=== PATIENT | female | born 1985 | race African-American/Black ===

== ENCOUNTER 2023-07-19 09:21 | Emergency (ER) | payer MEDICAID, SELFPAY ==
[2023-07-19 09:23] VITALS: BP 122/85; PULSE 72; RESP 16; TEMP 36.2; O2SAT 99; BMI 20.7
--- NOTE | 2023-07-19 09:34 | RAD_ITS ---
STUDY: X-RAY - PELVIS REASON FOR EXAM: Female, 37 years old. Injury/Pain TECHNIQUE: One view of the pelvis was obtained. COMPARISON: None. FINDINGS: There is a non-specific bowel gas pattern. There are multiple calcified phleboliths. Normal bilateral iliac wings, sacroiliac joints and visualized sacrum. Normal visualized bilateral superior and inferior pubic rami. There is narrowing with sclerosis of the pubic symphysis. Normal ischial tuberosities. Normal visualized right femoral head. Normal right acetabulum. Normal right hip joint. Normal visualized left femoral head. Normal left acetabulum. Normal left hip joint. RAD/Pelvis 1 or 2 Views IMPRESSION: No acute abnormality is seen. Electronically Signed: Larry Brown MD at 10:10 EST ,
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
[2023-07-19] MEDS: Ibuprofen 600 MG Tablet PO (09:43)
[2023-07-19] MEDS: HYDROcodone Bitartrate/Apap 5/325 Tablet PO (09:44)
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
[2023-07-19 09:54] VITALS: O2SAT 98
== END 2023-07-19 12:46 | disposition home or self-care (01) ==
PROVIDERS: Emergency Provider Emergency Medicine; Visit Provider Emergency Medicine
DX: S32.019A Unspecified fracture of first lumbar vertebra, initial encounter for closed fracture (principal); K40.90 Unilateral inguinal hernia, without obstruction or gangrene, not specified as recurrent; S39.93XA Unspecified injury of pelvis, initial encounter; S20.229A Contusion of unspecified back wall of thorax, initial encounter; V49.40XA Driver injured in collision with unspecified motor vehicles in traffic accident, initial encounter
CPT/HCPCS: 72100; 72170; 99282

== ENCOUNTER 2024-06-17 10:09 | Emergency (ER) | payer MEDICAID, SELFPAY ==
[2024-06-17 10:10] VITALS: BP 111/87; PULSE 78; RESP 18; TEMP 36.1; O2SAT 100; BMI 18.6
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
--- NOTE | 2024-06-17 10:45 | RAD_ITS ---
INDICATION: arm pain EXAMINATION/TECHNIQUE: X-RAY - RIGHT XR Humerus Min 2 Views 2 VIEWS COMPARISON: No relevant prior comparison study available FINDINGS: SOFT TISSUES: No soft tissue swelling or gas. No radiopaque foreign body. BONES/JOINTS: No acute fracture or subluxation.. Normal alignment. Preservation of the joint space.. No sclerotic or destructive changes observed. RAD/Humerus min 2 Views IMPRESSION: No acute osseous injury. Electronically Signed: Lindsay Montez MD at 12:09 EDT ,
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
[2024-06-17] MEDS: Acetaminophen 325 MG Tablet 650 MG PO (11:37)
[2024-06-17 13:46] VITALS: BP 111/87; PULSE 78; RESP 18; TEMP 36.1; O2SAT 100
== END 2024-06-17 13:48 | disposition home or self-care (01) ==
PROVIDERS: Emergency Provider Emergency Medicine; Visit Provider Emergency Medicine
DX: S00.83XA Contusion of other part of head, initial encounter (principal); S60.212A Contusion of left wrist, initial encounter; V89.2XXA Person injured in unspecified motor-vehicle accident, traffic, initial encounter
CPT/HCPCS: 70450; 70486; 72125; 73060; 73110; 73562; 99282

== ENCOUNTER 2025-01-26 19:30 | Emergency (ER) | payer OTHER, MEDICAID, SELFPAY ==
[2025-01-26 19:33] VITALS: BP 131/88; PULSE 87; RESP 16; TEMP 36.9; O2SAT 100; BMI 18.6
--- NOTE | 2025-01-26 19:51 | EX.ED.GENINJ ---
HPI <JAMIR Welch - Last Filed: 01/26/25 21:18> History of Present Illness Chief Complaint: Laceration Narrative Narrative: Patient presenting today due to concerns for a laceration to her left index finger that she got this evening while cutting cabbage for dinner. She reports that the knife was clean. She is unsure of her last tetanus update. She is right-handed. She is not on any blood thinners. PFSH <JAMIR Welch - Last Filed: 01/26/25 21:18> PFSH Medical History Asthma Acid reflux Home Medications ?Medication ?Instructions ?Recorded ?Last Taken ?Type cyclobenzaprine 10 mg tablet 10 mg PO HS PRN muscle spasm #14 10/23/24 Unknown Rx tabs ibuprofen 200 mg capsule (Motrin 200 mg PO Q6H PRN 10/23/24 Unknown History IB) ibuprofen 600 mg tablet 600 mg PO TID PRN pain #30 tabs 10/23/24 Unknown Rx Allergy/AdvReac Type Severity Reaction Status Date / Time No Known Allergies Allergy Verified 01/26/25 19:35 Family History Grandmother Colon cancer Mother Diabetes Heart disease Hypertension CVA (cerebral vascular accident) Surgical History H/O hand surgery Social History household members: significant other Smoking Status: Never smoker alcohol intake: current alcohol intake frequency: holidays/special occasions only substance use type: marijuana what type of physical activity do you participate in: walking frequency: 1-2 times per week do you feel safe at home: Yes ROS <JAMIR Welch - Last Filed: 01/26/25 21:18> ROS ED Constitutional Constitutional ED: Denies chills or fever(s) Cardiovascular Cardiovascular: Denies chest pain Respiratory/Chest Respiratory/Chest: Denies dyspnea Gastrointestinal Gastrointestinal: Denies abdominal pain, nausea or vomiting Musculoskeletal Musculoskeletal: Denies arthralgias Integumentary Reports laceration Neurologic Neurologic: Denies paresthesias EXAM <JAMIR Welch - Last Filed: 01/26/25 21:18> Physical Exam Const Vital Signs: 01/26/25 19:33 01/26/25 20:24 Temperature 98.4 F 98.0 F Temperature Source Oral Pulse Rate 87 72 Respiratory Rate 16 18 Blood Pressure 131/88 H 131/88 H Blood Pressure Mean 102 102 Pulse Ox 100 100 Oxygen Delivery Method Room Air Positive well nourished, well developed and no apparent distress General Appearance ED: well developed HEENT Reports normocephalic and head/scalp atraumatic Mouth ED: Yes moist mucous membranes normal Eyes PERRL and EOMs intact bilaterally Neck full ROM and supple Chest Wall inspection of chest normal Resp normal respiratory effort and clear to auscultation bilaterally Cardio regular rate and regular rhythm Back/Spine normal ROM and normal to inspection Extremity full ROM Extremity Narrative: 1.5 cm flap laceration to the palmar aspect of the left index finger distal phalanx. Left radial pulse 2+, good cap refill, sensation intact. Patient is able to flex and extend at the MCP, PIP, and DIP joints. No tendon laceration. Neuro moves all extremities, no focal motor deficits and no sensory deficits noted Sensorium / Orientation: awake and alert Psych mental status grossly normal and thought process normal Skin Skin Narrative: Aside from laceration to the left index finger no other rashes or lesions noted. <Dr. David Scales DO - Last Filed: 01/26/25 23:21> Physical Exam Const Vital Signs: 01/26/25 19:33 01/26/25 20:24 Temperature 98.4 F 98.0 F Temperature Source Oral Pulse Rate 87 72 Respiratory Rate 16 18 Blood Pressure 131/88 H 131/88 H Blood Pressure Mean 102 102 Pulse Ox 100 100 Oxygen Delivery Method Room Air PROC <JAMIR Welch - Last Filed: 01/26/25 21:18> Procedures Lacerations Laceration: Length: 0.59 in Depth: Sub Q Shape: Flap Prep: Chlorhexadine Laceration repair: Digital block, Irrigated and Lidocaine Number of Sutures/[place]: 3 Suture Information: Ethilon, Simple and 5-0 MDM <JAMIR Welch - Last Filed: 01/26/25 21:18> MDM MDM Narrative Medical decision making narrative: Patient presenting today due to concerns for a flap laceration to her left index finger that she got while cutting cabbage this evening. This will require suture repair. She is otherwise neurovascularly intact. Tetanus will be updated. She tolerated procedure well. Wound was bandaged with bacitracin ointment. Wound care instructions were discussed with her. Recommended she have sutures removed in 7 days. She will be discharged home in stable condition. <Dr. David Scales, - Last Filed: 01/26/25 23:21> MDM Treatment and Re-Evaluation Narrative: attending note: I have personally performed a face to face assessment of the patient and have reviewed the SAM note. I personally made/approved the management plan and take responsibility for the patient management. I performed a substantive portion of the visit including all aspects of the following. My gong findings include: Left index laceration cutting cabbage. Tetanus unknown. No anticoagulants. Exam laceration volar aspect distal phalanx no nailbed involvement no joint involvement. No active bleeding. Tetanus updated laceration by low voltage electrician. Wound care with outpatient follow-up. Discharge Plan Triage Chief Complaint: Laceration ED Midlevel Provider: Kassandra Berry ED Provider: David Scales Dx/Rx/DC Orders Clinical Impression: Finger laceration, Tetanus toxoid vaccination administered at current visit Instructions: ED Laceration, Hand: All Closures Prescriptions: No Action ibuprofen [Motrin IB] 200 mg capsule 200 mg PO Q6H PRN ibuprofen 600 mg tablet 600 mg PO TID PRN (Reason: pain) Qty: 30 0RF cyclobenzaprine 10 mg tablet 10 mg PO HS PRN (Reason: muscle spasm) Qty: 14 0RF Primary Care Provider: Care Physician,No Primary Referrals: Care Physician,No Primary [Primary Care Provider] - Activity Restrictions/Additional Instructions: Have sutures removed in 7 days. Please return for any signs of infection. Keep area clean. Print Language: Sinhala Disposition Disposition: Home, Self Care Discharge Date/Time: 01/26/25 20:37
[2025-01-26] MEDS: Diphth,Pertuss(Acell),Tet Vac 0.5 ML Vial IM (20:20)
[2025-01-26] MEDS: Lidocaine 1% (20 ml mdv) 20 ML Vial 10 ML INFILT (20:21)
[2025-01-26 20:24] VITALS: BP 131/88; PULSE 72; RESP 18; TEMP 36.7; O2SAT 100
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
== END 2025-01-26 20:37 | disposition home or self-care (01) ==
LOC: ED 20:37
PROVIDERS: Emergency Provider Emergency Medicine; Visit Provider Emergency Medicine
DX: S61.211A Laceration without foreign body of left index finger without damage to nail, initial encounter (principal); W26.0XXA Contact with knife, initial encounter; Y93.G1 Activity, food preparation and clean up; Z23 Encounter for immunization
CPT/HCPCS: 12001; 90471; 90715; 99283